=== PATIENT | male | born 1980 | race American Indian/Alaskan Native ===

== ENCOUNTER 2016-10-25 18:15 | Emergency (ER) | payer SELFPAY ==
[2016-10-25] MEDS ORDERED: NACL 0.9% 1000 ML 1,000 ML IV ONE (20:27)
[2016-10-25] MEDS ORDERED: TORADOL IV ONE (20:27)
[2016-10-25] MEDS ORDERED: XYLOCAINE 1% MPF 5 mL INFILTRATI ONE (20:27)
--- NOTE | 2016-10-25 20:29 | Emergency Department Report ---
HPI - General Chief Complaint: Skin/Abscess/Foreign Body Time Seen by Provider: 10/25/16 20:01 - HPI HPI: 36-year-old female presents to ED complaining of swelling and pain of his right lower lateral leg. Patient states he thinks he was picked in by something about 3 days ago. Patient states it is ago his leg began to itch over the next couple of days ago to a bit bigger and painful. Patient states redness and tenderness to his right lower leg. She states today it began draining some blood. She denies fevers/chills/nausea/vomiting/abdominal pain/chest pain or any other problems. ED Past Medical Hx - Past Medical History Additional medical history: hernia - Social History Smoking Status: Never Smoker Substance Use Type: None - Medications Home Medications: Home Medications Medication Instructions Recorded Confirmed Last Taken Type Cyclobenzaprine [Flexeril] 10 mg PO TID PRN #14 tablet 12/10/15 Unknown Rx Cephalexin [Keflex] 500 mg PO Q12HR #10 cap 10/25/16 Unknown Rx Ibuprofen [Motrin] 800 mg PO Q8HR PRN #30 tablet 10/25/16 Unknown Rx ED Review of Systems ROS: Stated complaint: RT LEG BITE Other details as noted in HPI Constitutional: denies: chills, fever Eyes: denies: eye pain, eye discharge, vision change ENT: denies: ear pain, throat pain, dental pain, hearing loss, epistaxis, congestion Respiratory: denies: cough, shortness of breath, wheezing Cardiovascular: denies: chest pain, palpitations Endocrine: no symptoms reported Gastrointestinal: denies: abdominal pain, nausea, vomiting, diarrhea, constipation Genitourinary: denies: urgency, dysuria, frequency, hematuria, discharge, testicular pain, testicular mass Musculoskeletal: denies: back pain, joint swelling, arthralgia, myalgia Skin: denies: rash, lesions, pruritus Neurological: denies: headache, weakness, numbness, paresthesias, confusion Psychiatric: denies: anxiety, depression Hematological/Lymphatic: denies: easy bleeding, easy bruising, swollen glands Physical Exam - Physical Exam Vital Signs: Vital Signs 10/25/16 18:41 Temperature 99.8 F H Pulse Rate 99 H Respiratory 16 Rate Blood Pressure 144/92 O2 Sat by Pulse 100 Oximetry Physical Exam: GENERAL: Alert and oriented x3, no apparent distress, Normal Gait, atraumatic. HEAD: Head is normocephalic and a-traumatic. NECK: Supple. Non edematous, No carotid bruits. No lymphadenopathy or thyromegaly. No C-spine tenderness LUNGS: Symetrical with respiration, No wheezing, no rales or crackles, CTAB. HEART: S1, S2 present, regular rate and rhythm without murmur, no rubs, no gallops. ABDOMEN: No organomegaly was noted,Positive bowel sounds, soft, and non- distended. . Nontender to palpation on all Quadrants, NO CVA tenderness. EXTREMITIES/MUSCULOSKELETAL: No cyanosis, clubbing, rash, lesions or edema. Right lateral lower leg cellulitis and pain with palpation. Puncture wound with mild bloody discharge seen. Moderately swollen. Nonfluctuant. 4-5 cm in diameter . Dried blood from a puncture wound Full ROM bilaterally. UE/LE Pulses 2+ bilaterally. LE and UE 5+ strength bilaterally, SKIN: Warm and dry, No lesions, No ulceration or induration present. ED Course Vital Signs 10/25/16 18:41 Temperature 99.8 F H Pulse Rate 99 H Respiratory 16 Rate Blood Pressure 144/92 O2 Sat by Pulse 100 Oximetry ED Medical Decision Making - Lab Data Result diagrams: 10/25/16 21:16 - Medical Decision Making 36-year-old male presents with neck sign CBC ordered. Patient received IV normal saline, 500 mg of Rocephin, 30 mg of IV Toradol. CBC ordered. CBC within normal limits Warm compress was applied to the right lateral lower leg. Puncture wounds seen and 4-5 cm of erythema surrounding the puncture wound. After warm compress applied moderate bloody discharge. Wound was dressed with triple antibiotic and sterile gauze. Discussed patient to continue warm compresses 3 times a day. Discussed to take antibiotics as prescribed. Discussed if worsening symptoms or new symptoms to return to ED. Otherwise follow-up with primary care physician. Vital signs are normal patient is in no acute distress Critical care attestation.: If time is entered above; I have spent that time in minutes in the direct care of this critically ill patient, excluding procedure time. ED Disposition Clinical Impression: Insect bite Qualifiers: Encounter type: initial encounter Qualified Code(s): W57.XXXA - Bitten or stung by nonvenomous insect and other nonvenomous arthropods, initial encounter Cellulitis Qualifiers: Site of cellulitis: extremity Site of cellulitis of extremity: lower extremity Laterality: right Qualified Code(s): L03.115 - Cellulitis of right lower limb Disposition: DISCHARGED TO HOME OR SELFCARE Is pt being admited?: No Does the pt Need Aspirin: No Condition: Stable Instructions: Cellulitis (ED), Insect Bite or Sting (ED) Additional Instructions: Continue Heat compressions 3 times a day Follow-up with primary care physician as referred. Taking medication as prescribed. Prescriptions: Cephalexin [Keflex] 500 mg PO Q12HR #10 cap Ibuprofen [Motrin] 800 mg PO Q8HR PRN #30 tablet PRN Reason: Pain Referrals: GEORGE TREVIZO MD [Referring] - 3-5 Days [facility] [Outside] - 3-5 Days [facility] [Outside] - 3-5 Days Forms: Accompanied Note, Work/School Release Form(ED) Time of Disposition: 21:58
[2016-10-25] MEDS ORDERED: ROCEPHIN 500 MG in NACL 0.9% 50 ML IV NR (21:00)
[2016-10-25 21:28] LABS: Basophils % (Auto) 0.5 % (0.0-1.8); Eosinophils % (Auto) 0.3 % (0.0-4.3); Hematocrit 39.5 % (35.5-45.6); Hemoglobin 13.1 gm/dl (11.8-15.2); Mean Corpuscular HGB Conc 33 % (32-34); Mean Corpuscular Hemoglobin 29 pg (28-32); Mean Corpuscular Volume 88 fl (84-94); Platelet Count 228 K/mm3 (140-440); Red Blood Count 4.49 M/mm3 (3.65-5.03); Red Cell Distribution Width 13.9 % (13.2-15.2); White Blood Count 9.9 K/mm3 (4.5-11.0)
[2016-10-25] MEDS ORDERED: TRIPLE ANTIBIOTIC TP ONE (22:03)
[2016-10-25 22:30] VITALS: BP 150/91
[2016-10-26] MEDS ORDERED: NEOSPORIN OU SCH (08:00)
== END 2016-10-25 22:33 | disposition home or self-care (01) ==
LOC: ED 18:15
DX: L03.115 Cellulitis of right lower limb (principal); W57.XXXA Bitten or stung by nonvenomous insect and other nonvenomous arthropods, initial encounter; Y93.89 Activity, other specified; Y99.9 Unspecified external cause status; Y92.89 Other specified places as the place of occurrence of the external cause
CPT/HCPCS: 36415; 85025; 96361; 96365; 96375; 99283; J0696; J1885; J7030; A6250